=== PATIENT | female | born 1970 | race Caucasian/White ===

== ENCOUNTER → 2019-07-06 | Outpatient (CLI) | payer OTHER | LOC: M.RAD 08:20 | DX: Z12.31 Encounter for screening mammogram for malignant neoplasm of breast (principal) ==

== ENCOUNTER → 2019-07-28 | Outpatient (CLI) | payer OTHER | LOC: M.RAD 07-09 10:56 | DX: N63.20 Unspecified lump in the left breast, unspecified quadrant (principal); R92.2 Inconclusive mammogram ==

== ENCOUNTER → 2019-07-30 | Outpatient (CLI) | payer OTHER ==
--- NOTE | 2019-07-31 16:06 | PATH ---
[address] [address] PATHOLOGY RPT PROCEDURE Name: DAYANARA,GIN [id number]: [facility]/19 Date of : 68 Discharge: Report #: [id number] Path Case #: [id number] [facility] Accession Number: [id number] . 01 Material submitted: . breast - LEFT BREAST, 2:30, 8CM FROM NIPPLE. Modifiers: left . 01 Clinical history: . 1.73 x 1.43 x 1.40 cm mass . 02 Diagnosis: Left breast, 2:30, 8 cm from nipple, image-guided core biopsies: - DUCTAL CARCINOMA IN SITU (DCIS), NUCLEAR GRADE II, SOLID AND CRIBRIFORM TYPES, SPANNING 7 MM, WITH PROMINENT "LOBULAR CANCERIZATION". - Luminal calcification of uninvolved breast tissue. See comment. (FIDEL:julio; 07/31/2019) MBR/07/31/2019 . 02 Comment: Estrogen and progesterone receptor studies are pending on A1 and will be the subject of an addendum report. Reviewed with Dr. Lynn Alex who agrees with the diagnosis. Kathleen (acting [facility] breast navigator), notified at approximately 1540 on 07/31/2019. (FIDEL:bellhop captain; 07/31/2019) . 02 Electronically signed: . Harry Martinez MD, Pathologist NPI- [id number] . 01 Gross description: . Received in formalin labeled "Gin Torres, left breast 2:30, 8 cm FN," are multiple needle cores of yellow-zhu fibrofatty tissue measuring 2.6 x 1.8 x 0.5 cm in aggregate dimensions. The tissue is submitted in its entirety in cassettes A1 through A3. The cold ischemic time is 7 minutes. The total formalin fixation time is greater than 7 hours and less than 72 hours. (TSD; 07/30/2019) TOB/TOB . 02 Pathologist provided ICD-10: D05.12 . 02 CPT . 960054 Specimen Comment: A courtesy copy of this report has been sent to Specimen Comment: [phone], , . Specimen Comment: Report sent to ,DR ROD / DR JOEL Performed at: 01 [place] [address] PATHOLOGY RPT PROCEDURE Name: GIN TORRES Room: [facility] Nathaniel#: [id number] Admission: 07/30/19 Date of : 68 Discharge: Report #: [id number] Path Case #: [id number] [facility] [address], [place], [place] [id number] MD Alan Rothman MD Phone: [phone] Performed at: 02 [facility] [address], [place], [place] [id number] MD Harry Martinez MD Phone: [phone]
== END ==
LOC: M.ULTRA 12:34
DX: D05.12 Intraductal carcinoma in situ of left breast (principal); R92.1 Mammographic calcification found on diagnostic imaging of breast